=== PATIENT | female | born 1990 | race Caucasian/White ===

== ENCOUNTER → 2018-03-13 11:51 | Outpatient (CLI) | payer OTHER, SELFPAY ==
[2018-03-15 20:07] LABS: Alternaria tenuis <0.10 kU/L (Class 0); Aspergillus fumigatus <0.10 kU/L (Class 0); Cladosporium herbarum <0.10 kU/L (Class 0); D farinae Mite <0.10 kU/L (Class 0); D pteronyssinus <0.10 kU/L (Class 0); Dog Epithelia <0.10 kU/L (Class 0)
[2018-03-16 12:11] LABS: Cat Hair / Dander,Stand <0.10 kU/L (Class 0); Penicillium Notatum <0.10 kU/L (Class 0)
== END ==
PROVIDERS: Family Provider Physician Assistant; PCP Physician Assistant; Referring Provider Otolaryngology; Visit Provider Otolaryngology
DX: J30.9 Allergic rhinitis, unspecified (principal)
CPT/HCPCS: 36415; 86003

== ENCOUNTER → 2018-09-30 12:44 | Outpatient (CLI) | payer OTHER, SELFPAY ==
[2018-09-04 11:05] VITALS: BMI 31.9
--- NOTE | 2018-09-30 12:46 | US_ITS ---
HISTORY: Assess viability. No priors. LMP 05/05/2019. 69 images. Findings: Endovaginal imaging: The uterus measures 9.1 x 6.6 x 8.7 cm. Within the uterine fundus is a gestational sac, of fetus, and a yolk sac. The cervix is closed. The chorionic membrane is present. heart motion is detected by M-mode imaging at 167 bpm. Eldred-rump length is measured at 2.1 cm. Mean sac diameter is is 2.7 cm. Some subchorionic hemorrhage is present. Yolk sac diameter is 5 mm. The left ovary measures 3.5 x 3.5 x 3.1 cm. A corpus luteal cyst is suspected on the left ovary. Color and pulse wave Doppler imaging suggests flow to the compressed left renal parenchyma peripheral to the cyst. The right ovary is measured at 2.4 x 3.2 x 1.6 cm. Several follicles are present on the right ovary. Color impulsive Doppler imaging suggests normal flow to right ovarian parenchyma. The urinary bladder is distended to 45 cc. US/OB Limited With Biometrics IMPRESSION: SL IUP. EGA 8W6D. IRWIN 05/06/2019 Small subchorionic hemorrhage. at 0303 Reported and signed by: Timothy Connors MD Electronically Signed: Timothy Connors MD at 3:02 EDT Tel , Service support ,
== END ==
PROVIDERS: Family Provider Physician Assistant; PCP Physician Assistant; Referring Provider Obstetrics & Gynecology; Visit Provider Obstetrics & Gynecology
DX: Z34.90 Encounter for supervision of normal pregnancy, unspecified, unspecified trimester (principal)
CPT/HCPCS: 76816

== ENCOUNTER → 2018-10-27 14:46 | Outpatient (CLI) | payer OTHER, SELFPAY ==
[2018-10-27 13:23] VITALS: BMI 31.9
[2018-10-27 15:38] LABS: Absolute Lymphocyte Count 2.54 X10^3/ul (0.83-4.51); Absolute Neutrophil Count 7.8 X10^3/uL (2.0-7.7); Basophil# 0.02 X10^3/uL; Basophil% 0.2 % (0-1); Eosinophil# 0.11 X10^3/uL; Hematocrit 38.7 % (37-47); Hemoglobin 13.3 g/dl (12.0-15.0); Lymphocyte # 2.54 X10^3/ul (4.0); Lymphocyte % 22.8 % (19-41); Mean Corp Hgb Conc 34.4 g/gl (32-36); Mean Corpuscular Hgb 29.8 pg (27.0-32.0); Mean Corpuscular Volume 86.8 fL (81-99); Mean Platelet Vol. 8.5 fl (6.2-12.0); Monocyte# 0.65 X10^3/uL; Monocyte% 5.8 % (0-10); Neutrophil # 7.81 X10^3/uL (2.7-7.7); Neutrophil % 69.9 % (47-70); POSITIVE COUNT NO; POSITIVE DIFFERENTIAL NO; POSITIVE MORPHOLOGY NO; Platelet Count 272 K/mm3 (150-450); RBC Distribution Width CV 12.9 % (11.6-14.6); RBC Distribution Width SD 39.9 fl (35.1-43.9); Red Blood Count 4.46 M/mm3 (4.2-5.4); White Blood Count 11.2 K/mm3 (4.4-11.0)
[2018-10-27 16:35] LABS: HIV - WCH Non-Reactive (Nonreactive); Rubella IgG 32.3 IU/mL
[2018-10-27 21:41] LABS: Chlamydia Trachomatis by PCR Negative (Negative); Neisserai gonorrhoeae by PCR Negative (Negative); Probe Check PASS; Sample Adequacy Control PASS; Specimen Processing Control PASS
[2018-10-29 12:16] LABS: HSV 1 IgG 1.75 index (0.00-0.90); HSV 2 IgG < 0.91 index (0.00-0.90)
[2018-10-31 05:48] LABS: Rapid Plasmin Reagin (RPR) NONREACTIVE (NONREACTIVE)
[2018-11-05 17:02] LABS: HPV Reflexed? NOT INDICATED
== END ==
PROVIDERS: Family Provider Physician Assistant; PCP Physician Assistant; Referring Provider Obstetrics & Gynecology; Visit Provider Obstetrics & Gynecology
DX: Z34.80 Encounter for supervision of other normal pregnancy, unspecified trimester (principal); Z12.4 Encounter for screening for malignant neoplasm of cervix
CPT/HCPCS: 36415; 85025; 86592; 86695; 86696; 86703; 86762; 86850; 86900; 87086; 87088; 87491; 87591; 87624; 88175; G0145

== ENCOUNTER → 2018-12-18 15:58 | Outpatient (CLI) | payer OTHER, SELFPAY ==
[2018-12-18 11:13] VITALS: BMI 33.1
== END ==
PROVIDERS: Family Provider Physician Assistant; PCP Physician Assistant; Referring Provider Nurse Practitioner Women's Health; Visit Provider Nurse Practitioner Women's Health
DX: R35.0 Frequency of micturition (principal)
CPT/HCPCS: 87086

== ENCOUNTER → 2019-01-15 15:00 | Outpatient (CLI) | payer OTHER, SELFPAY ==
[2019-01-15 14:15] VITALS: BMI 34.0
[2019-01-15 15:23] LABS: Absolute Lymphocyte Count 2.22 X10^3/uL (0.83-4.51); Absolute Neutrophil Count 6.5 X10^3/uL (2.0-7.7); Basophil# 0.03 X10^3/uL; Basophil% 0.3 % (0-1); Eosinophil# 0.13 X10^3/uL; Eosinophils% 1.4 % (0-5); Hematocrit 37.2 % (37-47); Hemoglobin 12.4 g/dL (12.0-15.0); Lymphocyte # 2.22 X10^3/ul (4.0); Lymphocyte % 23.4 % (19-41); Mean Corp Hgb Conc 33.3 g/dL (32-36); Mean Corpuscular Hgb 30.6 pg (27.0-32.0); Mean Corpuscular Volume 91.9 fL (81-99); Mean Platelet Vol. 8.4 fl (6.2-12.0); Monocyte# 0.57 X10^3/uL; NRBC Flagged by Analyzer 0 % (0-5); Neutrophil # 6.52 X10^3/uL (2.7-7.7); Neutrophil % 68.6 % (47-70); POSITIVE MORPHOLOGY YES; Platelet Count 213 K/mm3 (150-450); RBC Distribution Width SD 43.4 fl (35.1-43.9); Red Blood Count 4.05 M/mm3 (4.2-5.4); White Blood Count 9.5 K/mm3 (4.4-11.0)
[2019-01-15 15:34] LABS: Differential Indicated SCAN CRITERIA MET
[2019-01-15 16:07] LABS: Anisocytosis RARE; Macrocytosis RARE; Platelet Estimate ADEQUATE (ADEQ)
[2019-01-16 15:21] LABS: Pathologist Review Reviewed
[2019-01-20 12:07] LABS: Aspirgillus flavus Negative (Neg:<1:1); Aspirgillus fumigatus Negative (Neg:<1:1); Aspirgillus niger Negative (Neg:<1:1)
[2019-01-20 14:08] LABS: Alternaria alternata <0.10 kU/L (Class 0); Bermuda Grass <0.10 kU/L (Class 0); Bluegrass, Kentucky 0.65 kU/L (Class II); Cat Hair/Dander, Standard <0.10 kU/L (Class 0); D farinae Mite <0.10 kU/L (Class 0); D pteronyssinus <0.10 kU/L (Class 0); Dog Epithelia <0.10 kU/L (Class 0); Elm, American White <0.10 kU/L (Class 0); Oak, White <0.10 kU/L (Class 0); Plantain, English <0.10 kU/L (Class 0); Ragweed, Short/Common <0.10 kU/L (Class 0)
[2019-01-20 16:33] LABS: Mouse Urine <0.10 kU/L (Class 0)
[2019-01-20 16:39] LABS: Immunoglobulin E 14 IU/mL (6-495)
== END ==
PROVIDERS: Family Provider Physician Assistant; PCP Physician Assistant; Referring Provider Nurse Practitioner Acute Care; Visit Provider Nurse Practitioner Acute Care
DX: J45.909 Unspecified asthma, uncomplicated (principal)
CPT/HCPCS: 36415; 82785; 85025; 86003; 86606

== ENCOUNTER → 2019-02-05 15:54 | Outpatient (CLI) | payer OTHER, SELFPAY ==
[2019-02-05 15:38] VITALS: BMI 34.4
[2019-02-05 17:09] LABS: Absolute Lymphocyte Count 2.44 X10^3/uL (0.83-4.51); Absolute Neutrophil Count 6.4 X10^3/uL (2.0-7.7); Basophil# 0.05 X10^3/uL; Basophil% 0.5 % (0-1); Hematocrit 36.7 % (37-47); Hemoglobin 12.3 g/dL (12.0-15.0); Lymphocyte # 2.44 X10^3/ul (4.0); Lymphocyte % 25.8 % (19-41); Mean Corp Hgb Conc 33.5 g/dL (32-36); Mean Corpuscular Hgb 30.8 pg (27.0-32.0); Mean Platelet Vol. 8.6 fl (6.2-12.0); Monocyte# 0.54 X10^3/uL; Monocyte% 5.7 % (0-10); NRBC Flagged by Analyzer 0 % (0-5); Neutrophil # 6.39 X10^3/uL (2.7-7.7); Neutrophil % 67.7 % (47-70); Platelet Count 217 K/mm3 (150-450); RBC Distribution Width CV 12.9 % (11.6-14.6); RBC Distribution Width SD 43.3 fl (35.1-43.9); Red Blood Count 3.99 M/mm3 (4.2-5.4); White Blood Count 9.5 K/mm3 (4.4-11.0)
[2019-02-05 17:27] LABS: Glucose Challenge Gest 1H 50g 118 mg/dL (70-140)
== END ==
PROVIDERS: Family Provider Physician Assistant; PCP Physician Assistant; Referring Provider Obstetrics & Gynecology; Visit Provider Obstetrics & Gynecology
DX: Z34.92 Encounter for supervision of normal pregnancy, unspecified, second trimester (principal)
CPT/HCPCS: 36415; 82950; 85025

== ENCOUNTER → 2019-04-10 17:05 | Outpatient (CLI) | payer OTHER, SELFPAY ==
[2019-04-10 13:39] VITALS: BMI 37.9
== END ==
PROVIDERS: Family Provider Physician Assistant; PCP Physician Assistant; Referring Provider Obstetrics & Gynecology; Visit Provider Obstetrics & Gynecology
DX: Z36.85 Encounter for antenatal screening for Streptococcus B (principal)
CPT/HCPCS: 87081

== ENCOUNTER 2019-05-08 04:55 | Inpatient (IN) | payer OTHER, SELFPAY ==
[2019-05-06 11:28] VITALS: BMI 37.9
[2019-05-08 03:17] VITALS: BMI 38.5
[2019-05-08] MEDS: Lactated Ringers 1,000 ML 50 ML IV (05:15)
[2019-05-08] MEDS: Lactated Ringers 500 ML 999 ML IV (05:30)
[2019-05-08 05:36] LABS: Absolute Lymphocyte Count 2.15 X10^3/uL (0.83-4.51); Absolute Neutrophil Count 11.7 X10^3/uL (2.0-7.7); Basophil# 0.03 X10^3/uL; Basophil% 0.2 % (0-1); Hematocrit 40.4 % (37-47); Lymphocyte # 2.15 X10^3/ul (4.0); Lymphocyte % 14.5 % (19-41); Mean Corp Hgb Conc 34.7 g/dL (32-36); Mean Corpuscular Volume 89.6 fL (81-99); Mean Platelet Vol. 9.6 fl (6.2-12.0); Monocyte# 0.93 X10^3/uL; Monocyte% 6.3 % (0-10); NRBC Flagged by Analyzer 0.1 % (0-5); Neutrophil # 11.68 X10^3/uL (2.7-7.7); Neutrophil % 78.5 % (47-70); Platelet Count 209 K/mm3 (150-450); RBC Distribution Width CV 13.2 % (11.6-14.6); RBC Distribution Width SD 43.3 fl (35.1-43.9); Red Blood Count 4.51 M/mm3 (4.2-5.4); White Blood Count 14.9 K/mm3 (4.4-11.0)
[2019-05-08] MEDS: fentaNYL-bupivacaine (epidural) 100 ML BAG EPIDURAL (06:24)
--- NOTE | 2019-05-08 07:41 | NURSING ---
Dr Braswell updated no Hepatitis B and patient has not been taking her acyclovir for a week. Orders received for hepatitis B to be drawn.
--- NOTE | 2019-05-08 09:14 | HP.PCM_ITS ---
- Problem List (1) Anxiety Status: Acute Comment: failed celexa(severe depression), encouraged counseling and vistaril PRN, declined daily medication (2) Herpes simplex type 1 antibody positive Status: Acute Comment: acyclovir at 36 weeks (3) Status: Acute Qualifiers: Comment: declines carrier, genetic and NTD. anatomy scan normal (4) Supervision of other normal Status: Acute Comment: PRR (hepB) IRWIN 05/05/2018 Boy [facility] Maria Esther Spouse Randolph History and Physical Date of Admission: 05/08/19 Intake Vital Signs 05/06/19 BMI 37.9 05/06/19 Height 5 ft 2 in 05/06/19 Weight: 205 lb 05/06/19 BMI 37.5 05/06/19 BP 120/88 H Intake Visit Reasons: 40 WK OB Chief Complaint: est ob Gas Line Servicer Required: No Is patient in pain?: No Allergies tramadol Allergy (Unknown, Verified 05/06/19 11:27) Unknown Medications albuterol sulfate 90 mcg/actuation aerosol inhaler 1 puff INHALATION Q6H PRN 09/04/18 [History Confirmed 05/06/19] bioclense PO 09/04/18 [History Confirmed 05/06/19] bisacodyl 5 mg tablet 5 mg PO ONCE 09/04/18 [History Confirmed 05/06/19] cholecalciferol (vitamin D3) 50 mcg (2,000 unit) capsule 2,000 unit PO DAILY 09/04/18 [History Confirmed 05/06/19] cyclobenzaprine 10 mg tablet 10 mg PO HS 09/04/18 [History Confirmed 05/06/19] fexofenadine 180 mg tablet 180 mg PO DAILY 09/04/18 [History Confirmed 05/06/19] montelukast 10 mg tablet 10 mg PO QPM 09/04/18 [History Confirmed 05/06/19] omega-3 fatty acids 500 mg capsule 500 mg PO DAILY 09/04/18 [History Confirmed 05/06/19] plexus slim PO 09/04/18 [History Confirmed 05/06/19] probio5 PO 09/04/18 [History Confirmed 05/06/19] raw b complex PO 09/04/18 [History Confirmed 05/06/19] azelastine 0.15 % (205.5 mcg) nasal spray 1 spray INTRANASAL BID 12/09/18 [History Confirmed 05/06/19] beclomethasone dipropionate 80 mcg/actuation HFA breath activated aerosol 1 puff INHALATION BID 12/09/18 [History Confirmed 05/06/19] sumatriptan succinate 50 mg tablet 50 mg PO ONCE 12/09/18 [History Confirmed 05/06/19] hydroxyzine pamoate 25 mg capsule 25 mg PO TID-QID #60 cap 02/05/19 [Rx Confirmed 05/06/19] beclomethasone dipropionate 80 mcg/actuation HFA breath activated aerosol 1 inh INHALATION BID #10.6 g 02/19/19 [Rx Confirmed 05/06/19] cefdinir 300 mg capsule PO #20 cap 02/19/19 [History Confirmed 05/06/19] acyclovir 400 mg tablet 400 mg PO BID #60 tab 04/15/19 [Rx Confirmed 05/06/19] Last Menstral Period: 07/29/18 Zika: Zika virus screening: Negative : No PFSH PFSH Medical History SOB (shortness of breath) (Chronic) Chronic radicular pain of lower back (Chronic) Acne (Chronic) Obesity (Chronic) Migraines (Chronic) Surgical History History of ganglion cyst (Resolved) Family History Mother Hypertension Skin cancer Grandmother Skin cancer Hypertension Blood disorder Grandfather Leukemia Brother Asthma Anxiety Social History (Updated 05/06/19 @ 11:52 by Dyan Braswell MD) adopted: No household members: spouse, significant other number of children: 1 current occupational status: unemployed 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 Date Name GA/Weeks Outcome Route Bth Weight Gen Labor Lgth Anesthesia Del Locatn Provider FOB 06/22/14 Maria Esther 39 live - full term 5'11 Female [address] De Los Santos Delivery Date: 06/22/14 On 10/27/18 @ 14:12 Jillian Crowe decels, maternal hypotension HPI 40 WK OB: Details: VAUGHN STRICKLAND is a 28 year old who presents in active labor. she is 4 cm dilated no vb lof good fm co regular ctx. OB Visit IRWIN Calculator Estimated Delivery Date Method Current WG Current Estimate 05/05/19 LMP (Certain) 40w 1d Expected Delivery Route/Plan Labor Preferences- labor support person: Randolph pain management options preferred: epidural cut cord/dad catch: unsure : yes PP control planned: condom discussed possible routes of delivery and associated risks: [] special requests: [] Specific Issue/Plans flu vaccine: declines tdap vaccine: given rhogam: NA LARC form signed: yes Problem list reviewed and updated with the most current plan of care details and appropriate orders placed. Relevant counseling for the gestational age provided. Continue routine care and follow up unless otherwise noted in visit notes/problem list details movement and labor precautions reviewed. Initial Weight: 168 lb Date EGA Weight BP Urine Prot Glucose FHR FuHt Pres Mov CTX Dilation Effaced St Visit Note 11/28/18 17w 3d 173 lb 8 oz (+5 lb 8 oz) 120/68 Negative Negative 150 no vb some cramping. 12/18/18 20w 2d 177 lb (+9 lb) 116/72 Negative Negative 151 Active absent Urinary urgency and frequency wo dysuria. No Vb. LOF 01/22/19 25w 2d 182 lb (+14 lb) 120/64 Negative Negative 150 Active absent no vb lof 02/05/19 27w 2d 184 lb (+16 lb) 114/68 Negative Negative 140 27 no vb lof discussed anxiety 02/26/19 30w 2d 189 lb 2 oz (+21 lb 2 oz) 118/72 Negative Negative 154 30 NO VB, LOF. Good FM 03/12/19 32w 2d 194 lb 4 oz (+26 lb 4 oz) 112/72 Negative Negative 136 32 No VB, LOF. Good FM 03/23/19 33w 6d 195 lb 4 oz (+27 lb 4 oz) 127/81 Negative Negative 140 35 co dizziness, not feeling right. had 24 hour urine turned in 04/10/19 36w 3d 124/80 Negative Negative 140 36 no vb lof good fm no regular ctx 04/15/19 37w 1d 199 lb 8 oz (+31 lb 8 oz) 100/60 Negative Negative 138 37 Cephalic 1 40 -3 No VB, LOF. Start acyclov ir. Good FM 04/23/19 38w 2d 203 lb 4 oz (+35 lb 4 oz) 112/78 Negative Negative 151 38 Cephalic 1 -3 No reg CTX, No vb, log. Good FM 04/30/19 39w 2d 204 lb 2 oz (+36 lb 2 oz) 126/80 Negative Negative 140 39 Cephalic 1.5 SM- no vb lof decreased but meet minimum fm no reg ctx recommend NST 05/06/19 40w 1d 205 lb (+37 lb) 120/88 Negative Negative 140 40 Cephalic 1.5 60 -2 SM- no vb lof good fm no regular ctx discussed IOL saturday 40w6d if no spontaneous labor Notes Visit Date: 05/06/19 ??No visit notes to display Visit Date: 04/30/19 ??No visit notes to display Visit Date: 04/23/19 ??No visit notes to display Visit Date: 04/15/19 ??No visit notes to display Visit Date: 04/10/19 ??no vb lof good fm no regular ctx ??Dyan Braswell MD on 04/10/19 Visit Date: 03/23/19 ??co dizziness, not feeling right. had 24 hour urine turned in ??Dyan Braswell MD on 03/23/19 Visit Date: 03/12/19 ??No VB, LOF. Good FM ??OANH Rosa on 03/12/19 Visit Date: 02/26/19 ??NO VB, LOF. Good FM ??OANH Rosa on 02/26/19 Visit Date: 02/05/19 ??no vb lof discussed anxiety ??Dyan Braswell MD on 02/05/19 Visit Date: 01/22/19 ??no vb lof ??Dyan Braswell MD on 01/22/19 Visit Date: 12/18/18 ??Urinary urgency and frequency wo dysuria. No Vb. LOF ??Indy Hernandez NP-Rhea on 12/18/18 Visit Date: 11/28/18 ??no vb some cramping. ??Dyan Braswell MD on 11/28/18 ACOG First Trimester First Trimester: Second Trimester Second Trimester: Signs and Symptoms of Labor, Selecting a care provider, Reproductive Life Planning and Depression/Anxiety Third Trimester Third Trimester: Pain Management Plans, Labor support person(s), Immediate Larc, Movement Monitoring and Feeding Yes ; discussed Trial of Labor after Counseling or discussed Circumcision preference Diagnostics Diagnostics Diagnostics Glucose 1 Hr 50 gm 118 mg/dL (70-140) 02/05/19 Hgb 12.3 g/dL (12.0-15.0) 02/05/19 Hct 36.7 % (37-47) L 02/05/19 Details: HIV: Urine Culture: Sequential Screen: NIPT Screen: ROS Const Reports system reviewed and no additional complaints, except as docu Card Reports system reviewed and no additional complaints, except as docu Resp Reports system reviewed and no additional complaints, except as docu GI Reports system reviewed and no additional complaints, except as docu, Reports nausea Reports system reviewed and no additional complaints, except as docu Musc Reports system reviewed and no additional complaints, except as docu Exam Const General: cooperative, healthy appearing, comfortable, anxious [facility] Head: normal to inspection Nose: external nose normal Face and sinus: normal facial exam Neck Neck: normal visual inspection, full ROM, no lymphadenopathy Thyroid: thyroid normal Chest Chest palpation & inspection: normal inspection of the chest Resp Effort & Inspection: normal respiratory effort GI Inspection: normal to inspection Palpation: soft, other (gravid uterus) Other: vertex and appropriate size for gestational age Other: Cervical Exam: Extrem General: pedal edema Results POC Urinalysis 2 Dip (Clinic) Office Urine Glucose Negative Last Edit by Florencia Pendleton on 05/06/19 11:2 9 Office Urine Protein Negative Last Edit by Florencia Pendleton on 05/06/19 11:2 9 Assessment & Plan Problems 1. Seasonal allergies J30.2 2. Eosinophils increased D72.1 3. Influenza vaccination declined Z28.21 4. History of ganglion cyst Z87.39 5. SOB (shortness of breath) R06.02 6. Chronic radicular pain of lower back M54.16; G89.29 7. Acne L70.9 8. 40 weeks gestation of Z3A.40 9. Supervision of other normal Z34.80 10. Asthma, unspecified asthma severity, unspecified whether complicated, unspecified whether persistent J45.909 11. Herpes simplex type 1 antibody positive B00.9 12. Migraines G43.909 13. Obesity E66.9 14. Anxiety F41.9 admit IAL epidural now. gbs neg. no herpes lesion. Orders Orders: POC Urinalysis 2 Dip (Clinic) Today Coding Level of Care Code OB Routine Diagnoses Seasonal allergies J30.2 Eosinophils increased D72.1 Influenza vaccination declined Z28.21 History of ganglion cyst Z87.39 SOB (shortness of breath) R06.02 Chronic radicular pain of lower back M54.16; G89.29 Acne L70.9 40 weeks gestation of Z3A.40 ??Weeks of gestation: 40 weeks Supervision of other normal Z34.80 Asthma, unspecified asthma severity, unspecified whether complicated, unspecified whether persistent J45.909 ??Asthma complication type: unspecified ??Asthma persistence: unspecified ??Asthma severity: unspecified severity Herpes simplex type 1 antibody positive B00.9 Migraines G43.909 Obesity E66.9 Anxiety F41.9
[2019-05-08] MEDS: Lactated Ringers 1,000 ML 200 ML IV (09:25)
[2019-05-08] MEDS: Oxytocin 30 units/NS 500 ml 30 UNITS/500 ML IV.SOLN 334 UNITS IV (10:16)
--- NOTE | 2019-05-08 10:25 | OP.PCM_ITS ---
Problem List (1) Anxiety Status: Acute Comment: failed celexa(severe depression), encouraged counseling and vistaril PRN, declined daily medication (2) Herpes simplex type 1 antibody positive Status: Acute Comment: acyclovir at 36 weeks (3) Status: Acute Qualifiers: Comment: declines carrier, genetic and NTD. anatomy scan normal (4) Supervision of other normal Status: Acute Comment: PRR (hepB) IRWIN 05/05/2018 [facility] Maria Esther Spouse Randolph Vaginal Delivery Maternal Presentation: Active Labor ial Amniotic Membrane Rupture Type: Artificial Amniotic Fluid Description: Clear Final IRWIN: 05/05/19 Gestational age: 40 Weeks and 3 Days Date of Procedure: 05/08/19 Pre-Operative Diagnosis: ial Post-Operative Diagnosis: same Surgery/ Procedure Performed: Spontaneous Vaginal Delivery Type of Anesthesia: Epidural Description of Procedure: Patient began pushing and delivered the head in the KIKO presentation. The head was delivered atraumatically a loose nuchal cord x1 was identified and the infant was delivered through. The anterior and posterior shoulders delivered without complication followed by the rest of the and the infant was placed on the maternal abdomen. Delayed cord clamping was employed for approximately 60 seconds. Cord was clamped and cut and gentle traction was applied to the cord and the placenta delivered spontaneously immediately following it was noted to be intact with three-vessel cord. The perineum and vagina were inspected and small first-degree perineal laceration was noted in the repaired in the usual fashion with 3-0 Vicryl Rapide. EBL was 200 cc. Patient and infant tolerated delivery well. Presentation: KIKO Placental Delivery Description: Spontaneous Placenta Disposition: [facility] Cord Entanglement: Around neck x 1, loose Estimated Blood Loss: 300 Infant A gender: Male Episiotomy Description: None Laceration: Perineal Extension/lac, 1st degree Medications given after delivery: IV Pitocin Complications: None Multi Select Codes - Urinary/Genital Urinary/Genital CPT Codes: 46536 Vaginal Delivery [facility]
[2019-05-08 10:52] LABS: Hepatitis B Surface Antigen Non-Reactive (Nonreactive)
[2019-05-08] MEDS: Acetaminophen 500 MG Tablet 1000 MG PO ×2 (11:03→20:43)
[2019-05-08] MEDS: Naproxen 250 MG Tablet 500 MG PO (13:22)
[2019-05-08 15:51] VITALS: BP 101/55; PULSE 77; RESP 18; TEMP 36.8
[2019-05-08 20:27] VITALS: BP 119/68; PULSE 82; RESP 18; TEMP 36.6
[2019-05-08] MEDS: Montelukast 10 MG Tablet PO (20:43)
--- NOTE | 2019-05-08 23:17 | DCINST_ITS ---
Discharge Diet: No Restrictions Discharge Activity: Return to Normal Activity, May not drive while taking narcotic pain medications., May Shower May resume sexual activity in: 4-6 weeks Call your doctor if your incision/area has: Continuous Slow Oozing, Sudden Increased Bleeding, Increased Pain/ Swelling, Increased Redness, Foul Smelling Discharge Additional Instructions: If you experience any of the following, contact your healthcare provider. * Bleeding that soaks a pad every hour for 2 hours * Fever 100.4 or higher * Unrelieved incision or abdominal pain * Swelling, redness, discharge or bleeding from your incision or episiotomy site * Your incision begins to separate * Problems urinating (including inability to urinate or burning while urinating). * Visual changes * Severe headache * Flu-like symptoms * Pain or redness in one of both of your breasts * Pain, warmth, tenderness or swelling in your legs, especially the calf area * Frequent nausea and vomiting * Symptoms of depression or anxiety If you experience any of the following, call 911 or go to the nearest Emergency Room. * Chest pain * Problems breathing * Seizure activity * Partial or complete paralysis of a body part, slurred speech, weakness or drooping of the face, or a sudden inability to walk or hold your balance Allergies/Adverse Reactions: Allergies tramadol Allergy (Unknown, Verified 05/08/19 07:45) Unknown Medications to take at Discharge albuterol sulfate 90 mcg/actuation aerosol inhaler 1 puff INHALATION Q6H PRN 09/04/18 montelukast 10 mg tablet 10 mg PO QPM 09/04/18 omega-3 fatty acids 500 mg capsule 500 mg PO DAILY 09/04/18 probio5 1 tab PO DAILY 09/04/18 Marlene Allergy 1 tab PO DAILY 05/08/19 Please Follow Up With: Dyan Braswell MD - [phone] When: Call to make an appointment with your doctor in 6 weeks. If you had elevated Blood pressure or 4th degree laceration you will need to be seen in 2 weeks. Primary Care Physician: Laly Galarza PA [Primary Care Provider] - Test Results: Test results from this visit will be discussed in further detail at your follow- up appointment, if applicable.
[2019-05-08 23:43] VITALS: BP 115/50; PULSE 92; RESP 16; TEMP 36.6
[2019-05-09 03:16] VITALS: BP 94/41; PULSE 64; RESP 14; TEMP 36.4
[2019-05-09] MEDS: Naproxen 250 MG Tablet 500 MG PO ×3 (03:20→22:18)
[2019-05-09] MEDS: Acetaminophen 500 MG Tablet 1000 MG PO ×2 (07:12→19:37)
--- NOTE | 2019-05-09 07:26 | PN.OBGYN_ITS ---
Subjective: doing well no complaints pain controlled no CP SOB N V ambulating well tolerating po lochia moderate, going well - Physical Exam Vitals/I&O's: Vital Signs Temp Pulse Resp BP 97.5 F L 64 14 94/41 L 05/09/19 03:16 05/09/19 03:16 05/09/19 03:16 05/09/19 03:16 Oxygen Delivery Method Room Air Weight: 204 lb Body Mass Index (BMI) 38.5 Intake and Output for Last 24 Hours 05/07/19 05/08/19 05/09/19 23:59 23:59 23:59 Intake Total 1862.5 / 1862.5 Output Total 1200 / 1200 Balance 662.5 / 662.5 General: Alert, Oriented x3 Laboratory Results 05/08/19 09:14: Hep Bs Antigen Non-Reactive Current Medications Acetaminophen (Tylenol) 1,000 mg PO Q8H PRN PRN PRN Reason: Pain Score 1-3 Last Admin: 05/09/19 07:12 Dose: 1,000 mg Documented by: Albuterol Sulfate (Ventolin Aerosols) 2.5 mg INHALATION Q4H PRN PRN Reason: COUGH/CONGESTION Bisacodyl (Dulcolax) 10 mg RECTAL UD PRN PRN Reason: If no BM Dibucaine (Dibucaine) 1 applic TOPICAL TID PRN PRN; Protocol PRN Reason: Discomfort Hydrocortisone (Hytone) 1 applic TOPICAL TID PRN PRN; Protocol PRN Reason: Discomfort Loratadine (Claritin) 10 mg PO DAILY [facility] Methylergonovine Maleate (Methergine) 0.2 mg IM X1 PRN PRN Reason: Excess bleeding/uterine atony Montelukast Sodium (Singulair) 10 mg PO QPM [facility] Last Admin: 05/08/19 20:43 Dose: 10 mg Documented by: Naproxen (Naprosyn) 500 mg PO Q8H PRN PRN PRN Reason: Pain Score 1-3/10 Last Admin: 05/09/19 03:20 Dose: 500 mg Documented by: Ondansetron HCl (Zofran) 4 mg IV Q4H PRN PRN PRN Reason: Nausea Oxycodone HCl (Oxyir) 5 - 10 mg PO Q4H PRN PRN PRN Reason: Pain Score 4-10/10 Senna/Docusate Sodium (Senokot-S, Maribel-Colace) 1 - 2 tablet PO DAILY PRN PRN PRN Reason: Constipation Simethicone (Mylicon) 80 mg PO PCHS PRN PRN Reason: Indigestion/Stomach pain Sodium Chloride () 5 - 15 ml IV UD PRN PRN Reason: SALINE FLUSH Medical Necessity - Tobacco Use Smoking Status: Former smoker Assessment/Plan All Active Problems (Last Reviewed 05/06/19 @ 11:27 by Florencia Pendleton) Eosinophils increased (Acute) Influenza vaccination declined (Acute) History of ganglion cyst (Resolved) Herpes simplex type 1 antibody positive (Acute) Anxiety (Acute) Supervision of other normal (Acute) (Acute) s/p PPD # 1 1. routine post delivery care 2. breast feeding- support given 3. rh positive 4. rubella immune
[2019-05-09 08:40] VITALS: BP 102/56; PULSE 72; RESP 16; TEMP 36.6
--- NOTE | 2019-05-09 10:47 | CASEMGMT ---
Social Work Assessment Labor and Delivery Unit Date of Referral: 05/08/2019 Time of Referral: 13:32 Referred By: DR. PHAN Date of Intervention: 05/09/2019 Time of Intervention: 10:47A Reason for Referral: HISTORY OF ANXIETY History obtained from: MOTHER OF BABY (MOB) AND MEDICAL RECORD Household composition: HOUSEHOLD CONSISTS OF MOB, FOB-VIANEY STRICKLAND AND DAUGHTER, BRIDGETTE (5 Y/O) Patient's parent/guardian status: MOB AND FOB ARE Financial Status: NO ISSUES. FOB WORKS CERTIFIED REGISTERED NURSE PRACTITIONER AT [employer]. Infant Supplies: MOB REPORTS HAS ALL NEEDS MET FOR BABY INCLUDING DIAPERS, WIPES, CAR SEAT, CRIB, CLOTHES Childcare/Caregiver(s): MOB REPORTS IS STAY AT HOME MOM AND WILL BE MAIN CAREGIVER Transportation: NO ISSUES Programs/Agencies Involved: NONE REPORTED Children Services/Legal Issues: NO HISTORY REPORTED Behavioral Health Issues: Mental Health History: MOB REPORTS HISTORY OF ANXIETY. MOB STATES WITH FIRST BORN, BRIDGETTE HAD A LOT OF ANXIETY AND DID NOT WANT TO LEAVE BABY. MOB REPORTS NOT CURRENTLY ON ANY MEDICATION OR ACTIVE WITH COUNSELING. MOB REPORTS COUNSELING IN THE PAST AT AGE 16. Substance Use History: MOB DENIES ANY HX OF SUBSTANCE USE. FOB PRESENT AND DENIES ANY HX OF MENTAL HEALTH OR SUBSTANCE ABUSE FOR SELF. Family/Social Stressors: MOB DENIES ANY FAMILY OR SOCIAL STRESSORS. Support Systems: MOB REPORTS SUPPORT FROM FAMILY/FRIENDS. Depression/Shaken Baby/Safe Sleeping RESOURCES PROVIDED. NO QUESTIONS OR CONCERNS. ASSESSMENT: MET WITH MOB AND FOB IN ROOM. INTRODUCED ROLE AND REASON FOR REFERRAL. SW REFERRED D/T HX OF ANXIETY. MOB REPORTS HX OF ANXIETY WITH FIRST BORN. MOB STATES FAMILY THOUGHT SHE HAD ANXIETY AT THE AGE OF 16 D/T ISSUES WITH BREATHING AND FAMILY HX OF ANXIETY. MOB REPORTS WAS DX WITH ASTHMA. MOB REPORTS IS NOT CURRENTLY ON MEDICATION. MOB STATES FOLLOWED WITH COUNSELING IN THE PAST. NO ACTIVE SERVICES AND DENIES NEED AT THIS TIME. MOB REPORTS GOOD SUPPORT FROM FOB/ WHOM SHE HAS BEEN WITH FOR 6 YEARS. THIS WORKER PROVIDED MOB WITH LIST OF AREA RESOURCES FOR [facility]. RESOURCES PROVIDED ON POST DEPRESSION. UPDATED NURSE ON THIS WORKER'S ASSESSMENT. NO FURTHER NEEDS AT THIS TIME. PLAN: HOME WITH RESOURCES PROVIDED FOR [facility]. INFORMATIONAL PACKET GIVEN WITH EDUCATION ON PPD, HELP ME GROW, SAFE SLEEPING. MOB DENIES ANY NEEDS FOR REFERRALS. No other services requested or indicated. -July Carrera, MARINE REPORTER, PRESS CATCHER
[2019-05-09 12:47] VITALS: BP 116/70; PULSE 60; RESP 16
[2019-05-09 16:02] VITALS: BP 120/64; PULSE 75; RESP 16; TEMP 36.6
[2019-05-09 20:40] VITALS: BP 116/62; PULSE 76; RESP 18; TEMP 36.8
[2019-05-09] MEDS: Montelukast 10 MG Tablet PO (22:12)
[2019-05-10 02:09] VITALS: BP 117/59; PULSE 80; RESP 18; TEMP 36.4
[2019-05-10] MEDS: Acetaminophen 500 MG Tablet 1000 MG PO (03:38)
--- NOTE | 2019-05-10 07:41 | PCM.PN.OB ---
Subjective: doing well no complaints pain controlled no CP SOB N V ambulating well tolerating po lochia moderate, going well - Physical Exam Vitals/I&O's: Vital Signs Temp Pulse Resp BP 97.6 F L 80 18 117/59 L 05/10/19 02:09 05/10/19 02:09 05/10/19 02:09 05/10/19 02:09 Oxygen Delivery Method Room Air Weight: 204 lb Body Mass Index (BMI) 38.5 Intake and Output for Last 24 Hours 05/08/19 05/09/19 05/10/19 23:59 23:59 23:59 Intake Total 1862.5 / 1862.5 Output Total 1200 / 1200 Balance 662.5 / 662.5 General: Alert, Oriented x3 Current Medications Acetaminophen (Tylenol) 1,000 mg PO Q8H PRN PRN PRN Reason: Pain Score 1-3/10 Last Admin: 05/10/19 03:38 Dose: 1,000 mg Documented by: Albuterol Sulfate (Ventolin Aerosols) 2.5 mg INHALATION Q4H PRN PRN Reason: COUGH/CONGESTION Bisacodyl (Dulcolax) 10 mg RECTAL UD PRN PRN Reason: If no BM Dibucaine (Dibucaine) 1 applic TOPICAL TID PRN PRN; Protocol PRN Reason: Discomfort Hydrocortisone (Hytone) 1 applic TOPICAL TID PRN PRN; Protocol PRN Reason: Discomfort Loratadine (Claritin) 10 mg PO DAILY [facility] Last Admin: 05/09/19 14:34 Dose: Not Given Documented by: Methylergonovine Maleate (Methergine) 0.2 mg IM X1 PRN PRN Reason: Excess bleeding/uterine atony Montelukast Sodium (Singulair) 10 mg PO QPM [facility] Last Admin: 05/09/19 22:12 Dose: 10 mg Documented by: Naproxen (Naprosyn) 500 mg PO Q8H PRN PRN PRN Reason: Pain Score 1-3/10 Last Admin: 05/09/19 22:18 Dose: 500 mg Documented by: Ondansetron HCl (Zofran) 4 mg IV Q4H PRN PRN PRN Reason: Nausea Oxycodone HCl (Oxyir) 5 - 10 mg PO Q4H PRN PRN PRN Reason: Pain Score 4-10/10 Senna/Docusate Sodium (Senokot-S, Maribel-Colace) 1 - 2 tablet PO DAILY PRN PRN PRN Reason: Constipation Simethicone (Mylicon) 80 mg PO PCHS PRN PRN Reason: Indigestion/Stomach pain Sodium Chloride () 5 - 15 ml IV UD PRN PRN Reason: SALINE FLUSH Medical Necessity - Tobacco Use Smoking Status: Former smoker Assessment/Plan All Active Problems (Last Reviewed 05/06/19 @ 11:27 by Florencia Pendleton) Eosinophils increased (Acute) Influenza vaccination declined (Acute) History of ganglion cyst (Resolved) Herpes simplex type 1 antibody positive (Acute) Anxiety (Acute) Supervision of other normal (Acute) (Acute) s/p PPD # 2 1. routine post delivery care 2. breast feeding- support given 3. rh positive 4. rubella immune
[2019-05-10 08:33] VITALS: BP 103/52; PULSE 62; RESP 18; TEMP 36.7
[2019-05-10] MEDS: Naproxen 250 MG Tablet 500 MG PO (09:31)
== END 2019-05-10 11:30 | disposition home or self-care (01) | DRG 806 ==
LOC: WPOUT 05:07 → WP 05:07
PROVIDERS: Admitting Provider Obstetrics & Gynecology; Family Provider Physician Assistant; PCP Physician Assistant; Referring Provider Obstetrics & Gynecology; Visit Provider Obstetrics & Gynecology
DX: O69.81X0 Labor and delivery complicated by cord around neck, without compression, not applicable or unspecified (principal); O98.52 Other viral diseases complicating childbirth; Z37.0 Single live birth; B00.9 Herpesviral infection, unspecified; O99.52 Diseases of the respiratory system complicating childbirth; J45.909 Unspecified asthma, uncomplicated; O99.214 Obesity complicating childbirth; E66.9 Obesity, unspecified; O99.344 Other mental disorders complicating childbirth; F41.9 Anxiety disorder, unspecified; O70.0 First degree perineal laceration during delivery; Z3A.40 40 weeks gestation of pregnancy; Z28.21 Immunization not carried out because of patient refusal; Z87.891 Personal history of nicotine dependence
CPT/HCPCS: 59025; 59050; 85025; 86850; 86900; 86901; 87340; 99218; J7120; G0378

== ENCOUNTER → 2020-07-05 09:26 | Outpatient (CLI) | payer OTHER, SELFPAY ==
[2020-07-05 08:58] VITALS: BMI 29.7
[2020-07-05 09:50] LABS: Absolute Lymphocyte Count 2.23 X10^3/uL (0.83-4.51); Absolute Neutrophil Count 4.3 X10^3/uL (2.0-7.7); Basophil# 0.06 X10^3/uL; Basophil% 0.8 % (0-1); Eosinophil# 0.21 X10^3/uL; Eosinophils% 2.8 % (0-5); Hematocrit 40.4 % (37-47); Hemoglobin 13.3 g/dL (12.0-15.0); Lymphocyte # 2.23 X10^3/ul (4.0); Lymphocyte % 30.3 % (19-41); Mean Corp Hgb Conc 32.9 g/dL (32-36); Mean Corpuscular Hgb 29.3 pg (27.0-32.0); Mean Platelet Vol. 8.4 fl (6.2-12.0); Monocyte# 0.54 X10^3/uL; Monocyte% 7.3 % (0-10); NRBC Flagged by Analyzer 0 % (0-5); Neutrophil # 4.31 X10^3/uL (2.7-7.7); Neutrophil % 58.5 % (47-70); Platelet Count 245 K/mm3 (150-450); RBC Distribution Width CV 12.9 % (11.6-14.6); RBC Distribution Width SD 42.2 fl (35.1-43.9); Red Blood Count 4.54 M/mm3 (4.2-5.4); White Blood Count 7.4 K/mm3 (4.4-11.0)
[2020-07-05 10:11] LABS: Thyroid Stim Hormone (TSH) 1.76 uIU/mL (0.358-3.74)
== END ==
LOC: PAVLAB 09:28
PROVIDERS: PCP Physician Assistant; Referring Provider Nurse Practitioner Women's Health; Visit Provider Nurse Practitioner Women's Health
DX: N91.2 Amenorrhea, unspecified (principal); R42 Dizziness and giddiness
CPT/HCPCS: 36415; 84443; 85025

== ENCOUNTER → 2023-09-28 | Outpatient (CLI) | payer OTHER, SELFPAY ==
--- NOTE | 2023-09-28 10:06 | CT_ITS ---
INDICATION: CHRONIC SINUSITIS EXAMINATION: CT SINUSES - CT Sinuses W/O Contrast Injection TECHNIQUE: Helically acquired images were obtained of the paranasal sinuses. The protocol utilizes one or more of the following dose reduction techniques: automated exposure control, adjustment of mA and/or kV according to patient size,and/or use of iterative reconstruction technique. IV Contrast dosage and agent: None RADIATION DOSAGE (If Supplied By Facility): CTDIvol = ( 33.06 ) mGy, DLP = ( 788.4 ) mGycm COMPARISON: No relevant prior comparison study available FINDINGS: FRONTAL SINUSES AND RECESSES: Clear. ETHMOID AIR CELLS: Clear. MAXILLARY SINUSES: Clear. OSTIOMEATAL COMPLEXES: Clear and normally formed. SPHENOID SINUSES: Clear. SPHENOETHMOIDAL RECESSES: Clear. ANCILLARY FINDINGS: NASAL TURBINATES: There is a left middle turbinate prasanna bullosa. NASAL SEPTUM: There is nasal septal deviation right of midline. ORBITS: Unremarkable. VISUALIZED DENTITION: No periodontal osseous erosion. ANTERIOR CRANIAL FOSSA: Unremarkable. CT/Sinus/Facial Bone IMPRESSION: Nasal septal deviation right of midline. Left middle turbinate prasanna bullosa. Electronically Signed: Anel Marlow MD at 8:52 EDT ,
== END | disposition home or self-care (01) ==
LOC: CT 10:01
PROVIDERS: PCP Nurse Practitioner Family; Referring Provider Otolaryngology; Visit Provider Otolaryngology
DX: J32.9 Chronic sinusitis, unspecified (principal)
CPT/HCPCS: 70486